=== PATIENT | male | born 1980 | race Caucasian/White ===

== ENCOUNTER 2020-04-25 11:45 | Emergency (ER) | payer BC, MEDICAID ==
[~2020-04-25] VITALS: Ht 177.8 cm; Wt 80.5 kg
[~2020-04-25 11:45] MED LIST: CYCL-1 PO
--- NOTE | 2020-04-25 13:32 | NUR ---
PT TO CT VIA WHEELCHAIR
[2020-04-25 13:52] LABS: CLARITY,URINE CLEAR (Clear); GLUCOSE, URINE NEGATIVE (Neg); KETONES,URINE TRACE mg/dl (Neg); LEUKOCYTE ESTERASE ,URINE NEGATIVE (Neg); NITRITES, URINE NEGATIVE (Neg); OCCULT BLOOD,URINE NEGATIVE (Neg); PH,URINE 6.5 (4.8-8.0); PROTEIN,URINE NEGATIVE (Neg); UROBILINOGEN,URINE 0.2 E.U/dL (0.2-1.0)
[2020-04-25 14:04] LABS: COLOR,URINE DARK YELLOW (Yellow); UA COLLECTION TYPE CLN CATCH MIDSTREAM
[2020-04-25 14:21] VITALS: BP 112/79
== END 2020-04-25 14:16 | disposition home or self-care (01) ==
LOC: ER 11:46
DX: K40.20 Bilateral inguinal hernia, without obstruction or gangrene, not specified as recurrent (principal); K44.9 Diaphragmatic hernia without obstruction or gangrene; K59.00 Constipation, unspecified; Z98.890 Other specified postprocedural states; Z79.899 Other long term (current) drug therapy
CPT/HCPCS: 74176; 81003; 99284

== ENCOUNTER 2020-05-23 19:12 | Emergency (ER) | payer BC ==
[~2020-05-23] VITALS: Ht 177.8 cm; Wt 77.0 kg
[2020-05-23 19:49] VITALS: BP 145/88
[2020-05-23 20:25] LABS: CLARITY,URINE CLEAR (Clear); COLOR,URINE YELLOW (Yellow); GLUCOSE, URINE NEGATIVE (Neg); KETONES,URINE NEGATIVE (Neg); LEUKOCYTE ESTERASE ,URINE NEGATIVE (Neg); NITRITES, URINE NEGATIVE (Neg); OCCULT BLOOD,URINE NEGATIVE (Neg); PH,URINE 5.5 (4.8-8.0); PROTEIN,URINE NEGATIVE (Neg)
[2020-05-23 20:26] LABS: UA COLLECTION TYPE CLN CATCH MIDSTREAM
[2020-05-23] MEDS ORDERED: DOXYCYCLINE 100MG CAPSULE PO STA (21:24)
[2020-05-23] MEDS ORDERED: CefTRIAXone 250MG IM Kit w/LIDOcaine IM ONE (21:25)
[2020-05-23] MEDS ORDERED: DOXY100C2 PO (21:29)
== END 2020-05-23 21:44 | disposition home or self-care (01) ==
LOC: ER 19:13
DX: K40.90 Unilateral inguinal hernia, without obstruction or gangrene, not specified as recurrent (principal); N50.812 Left testicular pain; N45.2 Orchitis; Z98.890 Other specified postprocedural states; Z79.2 Long term (current) use of antibiotics
CPT/HCPCS: 76870; 81003; 93976; 96372; 99284; J0696

== ENCOUNTER 2023-03-11 14:20 | Emergency (ER) | payer SELFPAY ==
[~2023-03-11] VITALS: Ht 177.8 cm; Wt 90.9 kg
[2023-03-11 14:52] VITALS: RESP 16; TEMP 98
[2023-03-11 16:05] VITALS: BP 127/92; PULSE 78; O2SAT 100
== END 2023-03-11 21:07 | disposition left against medical advice (07) ==
LOC: ER 14:20
DX: S00.12XA Contusion of left eyelid and periocular area, initial encounter (principal); M54.2 Cervicalgia; Z53.21 Procedure and treatment not carried out due to patient leaving prior to being seen by health care provider; X58.XXXA Exposure to other specified factors, initial encounter; Y93.89 Activity, other specified; Y92.89 Other specified places as the place of occurrence of the external cause; Y99.8 Other external cause status
CPT/HCPCS: 99281